=== PATIENT | female | born 2000 | race Caucasian/White ===

== ENCOUNTER 2023-04-25 00:28 | Emergency (ER) | payer OTHER ==
[2023-04-25] MEDS ORDERED: CYCLOBENZAPRINE 10 MG TAB ONE (02:05)
[2023-04-25] MEDS ORDERED: LORazepam 2 MG/ML VIAL ONE (02:08)
[2023-04-25] MEDS ORDERED: KETOROLAC 30 MG/ML INJ ONE (02:08)
[2023-04-25] MEDS ORDERED: ONDANSETRON 4 MG/2 ML VIAL ONE (02:09)
[2023-04-25 02:35] LABS: Hematocrit 44.5 % (36.0-45.0); Lymphocytes % 33.3 % (15.3-44.8); MPV 7.4 fL (7.6-11.3); Protime INR 1.06; RBC Red Blood Cell Count 5.05 M/uL (3.86-4.86)
[2023-04-25 02:52] LABS: ALT/SGPT 26 U/L (13-56); AST/SGOT 14 U/L (15-37); Albumin 3.7 g/dL (3.4-5.0); Alkaline Phosphatase 85 U/L (45-117); BUN Blood Urea Nitrogen 12 mg/dL (7-18); Bicarbonate 26 mEq/L (21-32); Bilirubin Direct 0.2 mg/dL (0-0.2); Bilirubin Indirect, Calculated 0.3 mg/dL (0.2-0.8); Bilirubin Total 0.5 mg/dL (0.2-1.0); Glomerular Filtration Rate 120 ml/min (=/>90); Glucose Level 108 mg/dL (74-106); Potassium 3.3 mEq/L (3.5-5.1); Protein, Total 7.7 g/dL (6.4-8.2); Sodium Level 138 mEq/L (136-145)
[2023-04-25 02:57] LABS: Troponin High Sensitivity < 3.0 pg/mL (<58.9)
[2023-04-25] MEDS ORDERED: DIPHENHYDRAMINE 25 MG TAB/CAP ONE (03:16)
[2023-04-25] MEDS ORDERED: BENZONATATE 100 MG CAP PO ONE (03:16)
[2023-04-25] MEDS ORDERED: guaiFENesin 100 MG/5 ML UCUP ONE (03:16)
--- NOTE | 2023-04-25 04:38 | ER ---
Nurse's Notes [facility] Name: Batsheva Randall Age: 22 yrs Sex: Female : 2000 Arrival Date: 04/25/2023 Time: 00:28 Bed 4 Private MD: Diagnosis: Pneumonia due to other specified infectious organisms;Chest wall contusion, pleuritic chest wall pain, right upper lung pneumonia, aspiration pneumonia Presentation: 04/25 01:06 Chief complaint: Patient states: I feel like I got hit by a truck. 3 days ago I was kd3 resuscitated because I did some fentanyl. They did chest compressions when EMS first arrived. It took them 20 minutes to get me back. I was only breathing at 4 breaths per minute. My chest hurts every time I move or go over a bump in the car. Its tight and more to the left side. They did an EKG on me and they said I had a heart attack. Because i went without oxygen for 3 minutes straight. But my chest isn't getting better. Coronavirus screen: Vaccine status: Patient reports receiving the 2nd dose of the covid vaccine. Ebola Screen: No symptoms or risks identified at this time. Initial Sepsis Screen: Does the patient meet any 2 criteria? No. Patient's initial sepsis screen is negative. Does the patient have a suspected source of infection? No. Patient's initial sepsis screen is negative. Risk Assessment: Do you want to hurt yourself or someone else? Patient reports no desire to harm self or others. Onset of symptoms was April 25, 2023. 01:06 Method Of Arrival: Ambulatory kd3 01:06 Acuity: DEMETRIUS 3 kd3 Triage Assessment: 01:11 General: Appears uncomfortable, Behavior is calm, cooperative. Pain: Complains of pain kd3 in chest. Cardiovascular: Patient's skin is warm and dry. SUPERVISOR QUALITY CONTROL: 01:11 LMP N/A - control method kd3 Historical: - Allergies: 01:11 No Known Allergies; kd3 - Immunization history:: Adult Immunizations up to date. - Social history:: Smoking status: Patient reports the use of cigarette tobacco products, smokes one-half pack cigarettes per day. - Family history:: not pertinent. Screenin:12 [facility] ED Fall Risk Assessment (Adult) History of falling in the last 3 months, ha1 including since admission No falls in past 3 months (0 pts) Confusion or Disorientation No (0 pts) Intoxicated or Sedated Yes (3 pts) Impaired Gait No (0 pts) Mobility Assist Device Used No (0 pt) Altered Elimination Yes (1 pt) Score/Fall Risk Level 3 or more points = High Risk Oriented to surroundings, Maintained a safe environment, Educated pt \T\ family on fall prevention, incl call for assistance when getting out of bed, Hourly rounding (assess needs \T\ fall precautionary measures) done. Abuse screen: Denies threats or abuse. Denies injuries from another. Nutritional screening: No deficits noted. Tuberculosis screening: No symptoms or risk factors identified. Assessment: 01:12 General: Appears uncomfortable, Behavior is cooperative. General: Appears Behavior is ha1 anxious. Pain: Complains of pain in chest Pain currently is 10 out of 10 on a pain scale. Quality of pain is described as pressure, Pain began suddenly. Neuro: Level of Consciousness is awake, alert, obeys commands, Oriented to person, place, time, situation, Reports. Cardiovascular: Patient's skin is warm and dry. Respiratory: Airway is patent Respiratory effort is even, unlabored, Respiratory pattern is regular, symmetrical. GI: Abdomen is flat, non-distended. : No signs and/or symptoms were reported regarding the genitourinary system. EENT: No signs and/or symptoms were reported regarding the EENT system. Derm: Skin is pink, warm \T\ dry. Musculoskeletal: Circulation, motion, and sensation intact. Range of motion: intact in all extremities. 02:12 Reassessment: Patient and/or family updated on plan of care and expected duration. Pain ha1 level reassessed. Patient is alert, oriented x 3, equal unlabored respirations, skin warm/dry/pink. Patient states symptoms have improved. 03:12 Reassessment: Patient and/or family updated on plan of care and expected duration. Pain ha1 level reassessed. Patient is alert, oriented x 3, equal unlabored respirations, skin warm/dry/pink. going to CT Patient denies pain at this time. Patient states feeling better. Patient states symptoms have improved. 04:12 Reassessment: Patient and/or family updated on plan of care and expected duration. Pain ha1 level reassessed. Patient is alert, oriented x 3, equal unlabored respirations, skin warm/dry/pink. Patient denies pain at this time. Patient states feeling better. Patient states symptoms have improved. Vital Signs: 01:06 BP 103 / 68; Pulse 105; Resp 19; Temp 98(O); Pulse Ox 100% on R/A; Weight 66.68 kg; kd3 Height 5 ft. 7 in. ; Pain 10/10; 02:00 BP 122 / 96; Pulse 89; Resp 16 S; Pulse Ox 100% on R/A; ha1 02:30 BP 127 / 91; Pulse 87; Resp 16; Pulse Ox 100% ; ll3 03:00 BP 116 / 67; Pulse 81; Resp 16 S; Pulse Ox 95% on R/A; ha1 04:01 BP 125 / 70; Pulse 77; Resp 16; Pulse Ox 100% ; ll3 01:06 Body Mass Index 23.02 (66.68 kg, 170.18 cm) kd3 01:06 Pain Scale: Adult kd3 ED Course: 00:33 Patient arrived in ED. ja2 01:11 Triage completed. kd3 01:11 Arm band placed on right wrist. kd3 01:12 Patient has correct armband on for positive identification. Placed in gown. Bed in low ha1 position. Call light in reach. Side rails up X 1. 01:12 Client placed on continuous cardiac and pulse oximetry monitoring. NIBP monitoring ha1 applied. 01:12 Patient maintains SpO2 saturation greater than 95% on room air. ha1 01:25 Chinmay Man MD is Attending Physician. sp4 02:09 Test, Serum Sent. ha1 02:10 Basic Metabolic Panel Sent. ha1 02:10 CBC with Diff Sent. ha1 02:10 LFT's Sent. ha1 02:10 PT-INR Sent. ha1 02:10 Troponin HS Sent. ha1 03:34 CT Chest W/ Con In Process Unspecified. EDMS 04:35 Chinmay Man MD is Referral Physician. sp4 04:54 No provider procedures requiring assistance completed. IV discontinued, intact, ha1 bleeding controlled, No redness/swelling at site. Pressure dressing applied. Administered Medications: 02:00 Drug: Ativan IVP 1 mg Route: IVP; Site: left antecubital; ha1 02:30 Follow up: Response: No adverse reaction; Anxiety decreased ha1 02:08 Drug: Ketorolac IVP 30 mg Route: IVP; Site: left antecubital; ha1 02:30 Follow up: Response: No adverse reaction; Pain is decreased ha1 02:08 Drug: Cyclobenzaprine PO 10 mg Route: PO; ha1 02:30 Follow up: Response: No adverse reaction ha1 02:08 Drug: Ondansetron IVP 4 mg Route: IVP; Site: left antecubital; ha1 02:30 Follow up: Response: No adverse reaction ha1 03:29 Drug: diphenhydrAMINE PO 50 mg Route: PO; ha1 04:55 Follow up: Response: No adverse reaction ha1 03:29 Drug: Tessalon Perle PO 200 mg Route: PO; ha1 04:55 Follow up: Response: No adverse reaction ha1 03:29 Drug: Dextromethorphan-Guaifenesin PO Liquid 10 mg-100 mg/5 mL 10 ml Route: PO; ha1 04:55 Follow up: Response: No adverse reaction ha1 Medication: 04:55 VIS not applicable for this client. ha1 Outcome: 04:38 Discharge ordered by . sp4 04:54 Discharged to home ambulatory. ha1 04:54 Condition: stable 04:54 Discharge instructions given to patient, Instructed on discharge instructions, follow up and referral plans. medication usage, Demonstrated understanding of instructions, follow-up care, medications, Prescriptions given X 2. 04:55 Patient left the ED. ha1 Signatures: Dispatcher [employer] EDMS Asia Calderon [place], RN RN ll3 Corrie Saleem RN RN kd3 Brenna Ayala RN RN ha1 Chinmay Man MD MD sp4 Corrections: (The following items were deleted from the chart) 03:20 02:00 Response: No adverse reaction; Anxiety decreased ha1 ha1
--- NOTE | 2023-04-25 04:38 | EDPHYS ---
Physician Documentation [facility] Name: Batsheva Randall Age: 22 yrs Sex: Female : 2000 Arrival Date: 04/25/2023 Time: 00:28 Bed 4 Private MD: ED Physician Chinmay Man HPI: 04/25 04:28 This 22 yrs old Female presents to ER via Ambulatory with complaints of Chest sp4 Tightness, Cough, Nausea. 04:28 22-year-old female presents with chest pain secondary to recent CPR. Patient states she sp4 has overdosed on fentanyl 3 days ago in [facility]. She was at the local hospital in [facility] where she was given ventilations and CPR with chest compressions. Since then she was monitored in the hospital and was released 2 days ago. Patient now complains of moderate to severe midsternal chest pain secondary to chest compressions. . AUDIOLOGY DIRECTOR: 01:11 LMP N/A - control method kd3 Historical: - Allergies: 01:11 No Known Allergies; kd3 - Immunization history:: Adult Immunizations up to date. - Social history:: Smoking status: Patient reports the use of cigarette tobacco products, smokes one-half pack cigarettes per day. - Family history:: not pertinent. ROS: 04:28 Constitutional: Negative for fever, chills, and weight loss, positive for chest pain, sp4 cough, nausea Eyes: Negative for injury, pain, redness, and discharge, ENT: Negative for injury, pain, and discharge, Neck: Negative for injury, pain, and swelling, Cardiovascular: Negative for palpitations, and edema, today for chest pain Respiratory: Negative for wheezing, positive for pleuritic chest pain and cough Abdomen/GI: Negative for abdominal pain, vomiting, diarrhea, and constipation, Back: Negative for injury and pain, : Negative for injury, bleeding, discharge, and swelling, MS/Extremity: Negative for injury and deformity, Skin: Negative for injury, rash, and discoloration, Neuro: Negative for headache, weakness, numbness, tingling, and seizure, Psych: Negative for depression, anxiety, Allergy/Immunology: Negative for hives, rash, and allergies Endocrine: Negative for neck swelling, polydipsia, polyuria, polyphagia, and weight changes Hematologic/Lymphatic: Negative for swollen nodes, abnormal bleeding, and unusual bruising Exam: 04:28 Constitutional: This is a well developed, well nourished patient who is awake, alert, sp4 moderate anxiety on presentation. Head/Face: Normocephalic, atraumatic. Eyes: Pupils equal round and reactive to light, extra-ocular motions intact. Lids and lashes normal. Conjunctiva and sclera are not injected. Cornea within normal limits. Periorbital areas with no swelling, redness, or edema. ENT: Nares patent. No nasal discharge, no septal abnormalities noted. Tympanic membranes are normal and external auditory canals are clear. Oropharynx with no redness, swelling, or masses, exudates, or evidence of obstruction, uvula midline. Mucous membranes moist. Neck: Trachea midline, no thyromegaly or masses palpated, and no cervical lymphadenopathy. Supple, full range of motion without nuchal rigidity, or vertebral point tenderness. Chest/axilla: Normal chest wall appearance and motion. Nontender with no deformity. No lesions are appreciated. There is midsternal chest wall tenderness Cardiovascular: Regular rate and rhythm with a normal S1 and S2. No gallops, murmurs, or rubs. Normal PMI, no JVD. No pulse deficits. Respiratory: Lungs have equal breath sounds bilaterally, clear to auscultation and percussion. No rales, rhonchi or wheezes noted. No increased work of breathing, no retractions or nasal flaring. Abdomen/GI: Soft, non-tender, with normal bowel sounds. No distension or tympany. No guarding or rebound. No evidence of tenderness throughout. Back: No spinal tenderness. No costovertebral tenderness. Skin: Warm, dry with normal turgor. Normal color with no rashes, no lesions, and no evidence of cellulitis. MS/ Extremity: Pulses equal, no cyanosis. Neurovascular intact. Full, normal range of motion. Neuro: Awake and alert, GCS 15, oriented to person, place, time, and situation. Cranial nerves II-XII grossly intact. Motor strength 5/5 in all extremities. Sensory grossly intact. Psych: Awake, alert, with orientation to person, place and time. Behavior, mood, and affect are within normal limits 04:33 ECG was reviewed by the Attending Physician. There is normal sinus rhythm at the rate sp4 of 89. EKG time 0 247 Vital Signs: 01:06 BP 103 / 68; Pulse 105; Resp 19; Temp 98(O); Pulse Ox 100% on R/A; Weight 66.68 kg; kd3 Height 5 ft. 7 in. ; Pain 10/10; 02:00 BP 122 / 96; Pulse 89; Resp 16 S; Pulse Ox 100% on R/A; ha1 02:30 BP 127 / 91; Pulse 87; Resp 16; Pulse Ox 100% ; ll3 03:00 BP 116 / 67; Pulse 81; Resp 16 S; Pulse Ox 95% on R/A; ha1 04:01 BP 125 / 70; Pulse 77; Resp 16; Pulse Ox 100% ; ll3 01:06 Body Mass Index 23.02 (66.68 kg, 170.18 cm) kd3 01:06 Pain Scale: Adult kd3 MDM: 01:35 Patient medically screened. sp4 04:34 Differential diagnosis: acute pericarditis, anxiety, chest wall pain, pericarditis, sp4 pleurisy, pneumonia. HEART Score: History: Slightly Suspicious (0), ECG: Normal (0), Age: < or = 45 years (0), Risk Factors: No Risk Factors Known (0), Troponin: < or = 1 x Normal Limit (0), Total Score = 0. Data reviewed: vital signs, nurses notes, lab test result(s), EKG, radiologic studies, CT scan. ED course: CT chest revealed no rib or sternal fracture. There is few nodular groundglass opacities within the right upper lobe suggesting developing infectious versus infiltrative process. Will prescribe Zithromax p.o. for home consumption. Will advise patient to stay away from fentanyl or any other recreational drug. . 04/25 01:31 Order name: Basic Metabolic Panel; Complete Time: 04:25 04/25 01:31 Order name: CBC with Diff; Complete Time: 02:49 04/25 01:31 Order name: LFT's; Complete Time: 04:25 04/25 01:31 Order name: PT-INR; Complete Time: 02:49 04/25 01:31 Order name: Troponin HS; Complete Time: 04:25 04/25 01:31 Order name: Test, Serum; Complete Time: 04:25 04/25 01:34 Order name: CT Chest W/ Con sp4 04/25 01:31 Order name: EKG; Complete Time: 01:32 sp4 04/25 01:31 Order name: Cardiac monitoring; Complete Time: 02:08 sp4 04/25 01:31 Order name: EKG - Nurse/Tech; Complete Time: 02:49 sp4 04/25 01:31 Order name: IV Saline Lock; Complete Time: 02:08 sp4 04/25 01:31 Order name: Labs collected and sent; Complete Time: 02:09 sp4 04/25 01:31 Order name: O2 Per Protocol; Complete Time: 02:09 sp4 04/25 01:31 Order name: O2 Sat Monitoring; Complete Time: 02:09 4 EC:33 Rate is 89 beats/min. Rhythm is regular, Normal Sinus Rhythm. QRS [place] is Normal. [place] sp4 interval is normal. QRS interval is normal. QT interval is normal. T waves are Normal. No ST changes noted. Clinical impression: No evidence of ischemia. Interpreted by me. Administered Medications: 02:00 Drug: Ativan IVP 1 mg Route: IVP; Site: left antecubital; ha1 02:30 Follow up: Response: No adverse reaction; Anxiety decreased ha1 02:08 Drug: Ketorolac IVP 30 mg Route: IVP; Site: left antecubital; ha1 02:30 Follow up: Response: No adverse reaction; Pain is decreased ha1 02:08 Drug: Cyclobenzaprine PO 10 mg Route: PO; ha1 02:30 Follow up: Response: No adverse reaction ha1 02:08 Drug: Ondansetron IVP 4 mg Route: IVP; Site: left antecubital; ha1 02:30 Follow up: Response: No adverse reaction ha1 03:29 Drug: diphenhydrAMINE PO 50 mg Route: PO; ha1 04:55 Follow up: Response: No adverse reaction ha1 03:29 Drug: Tessalon Perle PO 200 mg Route: PO; ha1 04:55 Follow up: Response: No adverse reaction ha1 03:29 Drug: Dextromethorphan-Guaifenesin PO Liquid 10 mg-100 mg/5 mL 10 ml Route: PO; ha1 04:55 Follow up: Response: No adverse reaction ha1 Disposition Summary: 04/25/23 04:38 Discharge Ordered Location: Home sp4 Problem: new sp4 Symptoms: have improved sp4 Condition: Stable sp4 Diagnosis - Pneumonia due to other specified infectious organisms sp4 - Chest wall contusion, pleuritic chest wall pain, right upper lung pneumonia, sp4 aspiration pneumonia Followup: sp4 - With: Chinmay Man MD - When: As needed - Reason: Discharge Instructions: - Discharge Summary Sheet sp4 - Community-Acquired Pneumonia, Adult sp4 Prescriptions: - naproxen 250 mg Oral tablet - take 1 tablet by ORAL route every 8 hours PRN pain; 60 tablet; Refills: 0, sp4 Product Selection Permitted - Zithromax Z-Star 250 mg Oral Tablet - take 1 tablet by ORAL route as directed for 5 days Day 1 - take two (2) tablets sp4 one time. Day 2, 3, 4 , 5 take one (1) tablet once daily.; 6 tablet; Refills: 0, Product Selection Permitted Signatures: Dispatcher [employer] Corrie Palencia RN RN kd3 Brenna Ayala RN RN ha1 Chinmay Man MD MD sp4
[2023-04-25 05:05] VITALS: TEMP 98
[2023-04-25 05:10] VITALS: BP 125/70; O2SAT 100
--- NOTE | 2023-04-25 11:09 | RAD REPORT ---
EXAM DESCRIPTION: CT - Thorax W/ Con - 04/25/2023 6:27 am CLINICAL HISTORY: The patient is 22 years old and is Female; CHEST PAIN TECHNIQUE: Axial computed tomography images of the chest with intravenous contrast. Sagittal and c oronal reformatted images were created and reviewed. This CT exam was performed using one or more o f the following dose reduction techniques: automated exposure control, adjustment of the mA and/or kV according to patient size, and/or use of iterative reconstruction technique. COMPARISON: No relevant prior studies available. FINDINGS: TRACHEA: The tracheobronchial tree is widely patent. LUNGS: A few nodular groundglass opacities within the right upper lobe are present. The lungs are otherwise well-inflated and clear. There is no lobar consolidation. PLEURAL SPACE: Unremarkable. No pneumothorax. No significant effusion. HEART: No cardiomegaly. No pericardial effusion. BONES/JOINTS: No acute fracture. SOFT TISSUES: The soft tissues are normal. VASCULATURE: Unremarkable. No thoracic aortic aneurysm. LYMPH NODES: Unremarkable. No enlarged lymph nodes. IMPRESSION: Few nodular groundglass opacities within the right upper lobe suggesting a developing in fectious versus inflammatory process. Electronically signed by: Joann Wood MD 04/25/2023 4:07 AM CDT Due to temporary technical issues with the PACS/Fluency reporting system, reports are being signed by the in house radiologist without review as a courtesy to ensure prompt reporting. The interpreting r adiologist is fully responsible for the content of the report.
--- NOTE | 2023-04-25 17:49 | EKG ---
Test Date: 2023-04-25 Test Time: 02:47:47 Industrial Chemistry Teacher: TERRY MEASUREMENT RESULTS: Intervals: Rate: 89 UT: 120 QRSD: 94 QT: 362 QTc: 440 [place]: P: 54 UT: 120 QRS: 65 T: 47 INTERPRETIVE STATEMENTS: Normal sinus rhythm Normal ECG No previous ECG available for comparison Electronically Signed On 04-25-23 17:48:46 CDT by Rex Lloyd
== END 2023-04-25 04:55 | disposition home or self-care (01) ==
LOC: ER 00:28
DX: J15.8 Pneumonia due to other specified bacteria (principal); J69.0 Pneumonitis due to inhalation of food and vomit; S20.212A Contusion of left front wall of thorax, initial encounter; F17.210 Nicotine dependence, cigarettes, uncomplicated
CPT/HCPCS: 93005; 85025; 80048; 36415; 84703; 85610; 80076; 84484; 71260; 96375; 96374; 99285; Q9967; J2405